=== PATIENT | female | born 1985 | race Caucasian/White ===

== ENCOUNTER 2019-06-13 17:48 | Emergency (ER) | payer OTHER ==
[~2019-06-13] VITALS: Ht 160 cm; Wt 70.9 kg
[2019-06-13 18:50] VITALS: BP 132/72; PULSE 68; TEMP 97.3
== END 2019-06-13 18:52 | disposition home or self-care (01) ==
LOC: COL.ER 17:48
DX: M26.601 Right temporomandibular joint disorder, unspecified (principal)